=== PATIENT | female | born 1975 | race Caucasian/White ===

== ENCOUNTER → 2017-09-16 | Outpatient (REF) | payer OTHER ==
[2017-09-17 10:46] LABS: THYROID PEROXIDASE ANTIBODY > 1300.0 U/ML (<60.0)
== END ==
LOC: M LAB REF 13:36
DX: R63.5 Abnormal weight gain (principal); E03.9 Hypothyroidism, unspecified

== ENCOUNTER → 2017-10-01 | Outpatient (REF) | payer OTHER | LOC: M SFHCWAGY 15:25 | DX: Z12.4 Encounter for screening for malignant neoplasm of cervix (principal) ==

== ENCOUNTER → 2017-10-07 | Outpatient (CLI) | payer OTHER | LOC: M WHC 14:37 | DX: N92.0 Excessive and frequent menstruation with regular cycle (principal) ==

== ENCOUNTER → 2017-11-14 | Outpatient (REF) | payer OTHER ==
[2017-11-14 22:41] LABS: THYROID PEROXIDASE ANTIBODY > 1300.0 U/ML (<60.0)
[2017-11-14 22:41] LABS: THYROGLOBULIN ANTIBODY 414.3 U/ML (<60.0)
== END ==
LOC: M LAB REF 16:39
DX: E07.9 Disorder of thyroid, unspecified (principal); R63.5 Abnormal weight gain

== ENCOUNTER 2018-01-30 12:56 | Day surgery (SDC) | payer OTHER ==
[2018-01-30 13:37] LABS: HEMATOCRIT 39.3 % (36.0-47.0); HEMOGLOBIN 13.2 g/dl (12.0-15.5); MEAN CORPUSCULAR HEMOGLOBIN 29.4 pg (27.0-33.0); MEAN CORPUSCULAR HGB CONC 33.6 g/dl (32.0-36.5); MEAN CORPUSCULAR VOLUME 87.5 fl (80.0-96.0); PLATELET COUNT, AUTOMATED 228 10^3/uL (150-450); RED BLOOD COUNT 4.49 10^6/uL (4.00-5.40); RED CELL DISTRIBUTION WIDTH 13.9 % (11.5-14.5); WHITE BLOOD COUNT 11.7 10^3/uL (4.0-10.0)
[2018-01-30] MEDS: LR 1,000 ML IV (13:46)
[2018-01-30 13:54] LABS: CONTROL LINE HCG INT CTR LINE PRESENT; HCG, SERUM QUALITATIVE NEGATIVE (NEGATIVE)
[2018-01-30] MEDS ORDERED: ONDANSETRON 4MG/2ML VIAL (J2405) As Ordered (18:10)
[2018-01-30] MEDS ORDERED: KETOROLAC 60 MG/2 ML VIAL (J1885) As Ordered (18:10)
[2018-01-30] MEDS ORDERED: fentaNYL 100 MCG/2 ML INJECTION (J3010) As Ordered (18:10)
[2018-01-30] MEDS ORDERED: MIDAZOLAM INJ 2 MG/2 ML VIAL (J2250) As Ordered (18:10)
[2018-01-30] MEDS ORDERED: LIDOCAINE 2% INJ 100 MG/5 ML SDV (FOR ANES.) As Ordered (18:10)
[2018-01-30] MEDS ORDERED: PROPOFOL 200 MG/20 ML VIAL As Ordered ×2 (18:10→18:19)
[2018-01-30] MEDS ORDERED: METOCLOPRAMIDE INJ 10MG/2ML VIAL (J2765) As Ordered (18:10)
[2018-01-30] MEDS ORDERED: dexameTHASONE 4 MG/ML 1ML VIAL (J1100) As Ordered (18:10)
[2018-01-30] MEDS ORDERED: METOCLOPRAMIDE INJ 10MG/2ML VIAL (J2765) IV (19:00)
[2018-01-30] MEDS ORDERED: LR 1,000 ML IV ×2 (19:00→19:15)
[2018-01-30] MEDS ORDERED: MEPERIDINE INJ 25 MG/ML VIAL (J2175) IV (19:00)
[2018-01-30] MEDS ORDERED: fentaNYL 100 MCG/2 ML INJECTION (J3010) IV (19:00)
[2018-01-30] MEDS ORDERED: ONDANSETRON 4MG/2ML VIAL (J2405) IV (19:00)
[2018-01-30] MEDS ORDERED: PERCOCET 5MG/325MG TAB PO (19:00)
== END 2018-01-30 20:30 | disposition home or self-care (01) ==
LOC: M SDC 12:56
DX: N92.6 Irregular menstruation, unspecified (principal); E03.9 Hypothyroidism, unspecified; Z79.899 Other long term (current) drug therapy; F17.210 Nicotine dependence, cigarettes, uncomplicated
CPT/HCPCS: 58563

== ENCOUNTER → 2020-07-11 | Outpatient (REF) | payer OTHER ==
[~2020-07-11] MED LIST: SYNT50TA PO
== END ==
LOC: M SFHCWAGY 17:02
PROVIDERS: ATTEND Nurse Practitioner Women's Health
DX: Z12.4 Encounter for screening for malignant neoplasm of cervix (principal)
CPT/HCPCS: 87624; G0123

== ENCOUNTER 2022-11-24 11:30 | Emergency (ER) | payer OTHER ==
[~2022-11-24] VITALS: Ht 162.6 cm; Wt 90.0 kg
[2022-11-24] MEDS ORDERED: AMOX500C (11:40)
[2022-11-24 12:39] LABS: BASO # 0.1 10^3/uL (0.0-0.2); BASO % 0.7 % (0.0-1.0); EOS # 0.2 10^3/uL (0.0-0.5); EOS % 3.2 % (0.0-3.0); HEMOGLOBIN 13.4 g/dl (12.0-15.5); LYMPH # 2.4 10^3/uL (1.5-5.0); LYMPH % 34.1 % (24.0-44.0); MEAN CORPUSCULAR HEMOGLOBIN 29.3 pg (27.0-33.0); MEAN CORPUSCULAR HGB CONC 32.7 g/dl (32.0-36.5); MEAN CORPUSCULAR VOLUME 89.7 fl (80.0-96.0); MONO # 0.5 10^3/uL (0.0-0.8); MONO % 7.5 % (2.0-8.0); NEUTROPHILS # 3.9 10^3/uL (1.5-8.5); NEUTROPHILS % 54.2 % (36.0-66.0); PLATELET COUNT, AUTOMATED 223 10^3/uL (150-450); RED BLOOD COUNT 4.57 10^6/uL (4.00-5.40); WHITE BLOOD COUNT 7.2 10^3/uL (4.0-10.0)
[2022-11-24 13:05] LABS: CK-MB VALUE MASS < 1.0 NG/ML (<3.6)
[2022-11-24 13:06] LABS: LIPASE 37 U/L (12-53)
[2022-11-24 13:08] LABS: ALBUMIN 4.1 G/DL (3.2-5.2); ALKALINE PHOSPHATASE 117 U/L (46-116); ALT/SGPT 42 U/L (7.0-40); AST/SGOT 24 U/L (<34); BILIRUBIN,DIRECT 0.1 MG/DL (<0.4); BILIRUBIN,TOTAL 0.4 MG/DL (0.3-1.2); BLOOD UREA NITROGEN 16 MG/DL (9-23); CARBON DIOXIDE LEVEL 27 MMOL/L (20-31); CHLORIDE LEVEL 107 MMOL/L (98-107); CREATININE FOR GFR 0.78 MG/DL (0.55-1.30); GLOMERULAR FILTRATION RATE > 60.0 (>58); GLUCOSE, FASTING 89 MG/DL (60-100); MAGNESIUM LEVEL 2.2 MG/DL (1.8-2.4); POTASSIUM SERUM 4.5 MMOL/L (3.5-5.1); SODIUM LEVEL 140 MMOL/L (136-145); TOTAL PROTEIN 7.1 G/DL (5.7-8.2)
[2022-11-24 13:09] LABS: THYROID STIMULATING HORMONE 3.129 uIU/ML (0.55-4.78)
[2022-11-24 13:10] LABS: FREE T4 1.14 NG/DL (0.89-1.76)
[2022-11-24 13:11] LABS: CPK CREATINE PHOSPHOKINASE 65 U/L (34-145); MB/CK RELATIVE INDEX 1.53 (< OR =4)
[2022-11-24] MEDS ORDERED: DIGOXIN INJ 0.5 MG/2 ML AMP IV STA (13:37)
[2022-11-24] MEDS ORDERED: DIGO0.253 PO (13:43)
[2022-11-24 14:00] VITALS: BP 126/74
== END 2022-11-24 14:28 | disposition home or self-care (01) ==
LOC: M ED 11:30
DX: I47.9 Paroxysmal tachycardia, unspecified (principal); E03.9 Hypothyroidism, unspecified
CPT/HCPCS: 71045; 80048; 80076; 82550; 82553; 83690; 83735; 84439; 84443; 84484; 85025; 93005; 93041; 94760; 96374; 99285; J1160